=== PATIENT | female | born 1960 | race Hispanic/Latino ===

== ENCOUNTER 2018-05-06 11:08 | Emergency (ER) | payer BC, SELFPAY ==
[2018-05-06] MEDS ORDERED: LIDOCAINE 1% MPF 30 ML VIAL ONE (11:52)
--- NOTE | 2018-05-06 12:46 | ER ---
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 Jagged laceration, approx 5 cm, noted to chin with small amount of controlled bleeding. Care prior to arrival: None. Mechanism of Injury: Fall from standing position. Trauma event details: Injury occurred in the [facility], Injury occurred: at home. Injury occurred: May 06, 2018 Injury occurred at: 10:30. 11:17 Acuity: CHELLE 4 aj 11:17 Method Of Arrival: Ambulatory aj 11:30 Transition of care: patient was not received from another setting of care. Onset of tw2 symptoms was May 06, 2018. Risk Assessment: Do you want to hurt yourself or someone else? Patient reports no desire to harm self or others. Initial Sepsis Screen: Does the patient meet any 2 criteria? No. Patient's initial sepsis screen is negative. Does the patient have a suspected source of infection? No. Patient's initial sepsis screen is negative. Trauma Activation: Not Applicable Physician: ED Physician; Name: ; Notified At: ; Arrived At: Physician: General Surgeon; Name: ; Notified At: ; Arrived At: Physician: Radiology; Name: ; Notified At: ; Arrived At: Physician: Respiratory; Name: ; Notified At: ; Arrived At: Physician: Lab; Name: ; Notified At: ; Arrived At: Historical: - Allergies: 11:20 No Known Allergies; aj - Home Meds: 11:20 None [Active]; aj - PMHx: 11:20 None; aj - PSHx: 11:20 None; aj - Immunization history: Last tetanus immunization: unknown. - Social history:: Smoking status: Patient/guardian denies using tobacco. - Ebola Screening: : Patient negative for fever greater than or equal to 101.5 degrees Fahrenheit, and additional compatible Ebola Virus Disease symptoms Patient denies exposure to infectious person Patient denies travel to an Ebola-affected area in the 21 days before illness onset No symptoms or risks identified at this time. Screenin:29 Abuse screen: Denies threats or abuse. Nutritional screening: No deficits noted. tw2 Tuberculosis screening: No symptoms or risk factors identified. Fall Risk None identified. Primary Survey: 11:17 Breathing/Chest: Respiratory pattern: regular, Respiratory effort: spontaneous, aj unlabored. Circulation: Skin color: pink, Skin temperature: warm, dry. Disability Alert. Assessment: 11:17 General: Appears in no apparent distress. comfortable, Behavior is calm, cooperative, aj appropriate for age. Pain: Complains of pain in chin and neck. Neuro: Level of Consciousness is awake, alert, obeys commands, Oriented to person, place, time, situation, Appropriate for age. Respiratory: Airway is patent Respiratory effort is even, unlabored, Respiratory pattern is regular, symmetrical. Derm: Skin is intact, is healthy with good turgor, Skin is pink, warm \T\ dry. normal, Skin temperature is warm. Injury Description: Laceration sustained to chin is clean, jagged, 2.6 to 7.5 cm long. 12:20 Reassessment: Patient appears in no apparent distress at this time. Derik at bedside iw suturing ptGregor slot technician to assist. Vital Signs: 11:17 BP 147 / 97; Pulse 73; Resp 20; Temp 98.3; Pulse Ox 96% on R/A; Weight 61.23 kg; Height aj 5 ft. 7 in. (170.18 cm); 11:17 Body Mass Index 21.14 (61.23 kg, 170.18 cm) aj Jeison Coma Score: 11:17 Eye Response: spontaneous(4). Verbal Response: oriented(5). Motor Response: obeys aj commands(6). Total: 15. Trauma Score (Adult): 11:17 Eye Response: spontaneous(1); Verbal Response: oriented(1); Motor Response: obeys aj commands(2); Systolic BP: > 89 mm Hg(4); Respiratory Rate: 10 to 29 per min(4); [place] Score: 15; Trauma Score: 12 ED Course: 11:10 Patient arrived in ED. mr 11:18 Triage completed. aj 11:20 Arm band placed on left wrist. Patient placed in an exam room. aj 11:28 [facility] jr8 11:28 Howard Abebe MD is Attending Physician. jr8 11:29 Divine Calhoun RN is Primary Nurse. tw2 11:29 Bed in low position. Call light in reach. Adult w/ patient. Pulse ox on. NIBP on. tw2 11:30 Patient maintains SpO2 saturation greater than 95% on room air. tw2 11:30 Thermoregulation: warm blanket given to patient. tw2 12:38 Primary Nurse role handed off by Divine Calhoun RN iw 12:38 Ronna Crawford, RN is Primary Nurse. iw 12:50 Assist provider with laceration repair on chin using sutures. Set up tray. Performed by tw2 Derik ZHANG Patient tolerated well. 13:15 Patient did not have IV access during this emergency room visit. 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 Exp: iw 01/08/2020. Lot #: [id number]. } Route: IM; Site: right deltoid; Intake: 11:30 PO: 0ml; Total: 0ml. tw2 Outcome: 12:46 Discharge ordered by . jr8 13:15 Patient left the ED. iw 13:15 Discharged to home ambulatory, with family. tw2 13:15 Condition: stable 13:15 Discharge instructions given to patient, family, Instructed on discharge instructions, follow up and referral plans. wound care, Demonstrated understanding of instructions, follow-up care, wound care. Signatures: Ashly Ndiaye RN RN aj Rivera, Mary mr Ronna Crawford RN RN iw Roszak, Josh, PA PA jr Divine Calhoun RN RN tw2 Corrections: (The following items were deleted from the chart) 14:22 13:15 No provider procedures requiring assistance completed. tw2 tw2
--- NOTE | 2018-05-06 12:46 | EDPHYS ---
Physician Documentation [facility] Name: Salma Kumar Age: 58 yrs Sex: Female : 1960 Arrival Date: 05/06/2018 Time: 11:10 Bed 12 Private MD: ED Physician Howard Abebe HPI: 05/06 14:15 This 58 yrs old Female presents to ER via Ambulatory with complaints of Fall jr8 Injury, Laceration To Chin. 14:15 Details of fall: The patient fell from an upright position, while standing. Onset: The jr8 symptoms/episode began/occurred acutely, today. Associated injuries: The patient sustained face. Severity of symptoms: At their worst the symptoms were moderate, in the emergency department the symptoms are unchanged. The patient has not experienced similar symptoms in the past. The patient has not recently seen a physician. Patient stated that she was exercising and tripped landing on her chin. Denies LOC. No headache or neck pain. Laceration noted to chin . Historical: - Allergies: 11:20 No Known Allergies; aj - Home Meds: 11:20 None [Active]; aj - PMHx: 11:20 None; aj - PSHx: 11:20 None; aj - Immunization history: Last tetanus immunization: unknown. - Social history:: Smoking status: Patient/guardian denies using tobacco. - Ebola Screening: : Patient negative for fever greater than or equal to 101.5 degrees Fahrenheit, and additional compatible Ebola Virus Disease symptoms Patient denies exposure to infectious person Patient denies travel to an Ebola-affected area in the 21 days before illness onset No symptoms or risks identified at this time. ROS: 14:15 Eyes: Negative for injury, pain, redness, and discharge, Neck: Negative for injury, jr8 pain, and swelling, Cardiovascular: Negative for chest pain, palpitations, and edema, Respiratory: Negative for shortness of breath, cough, wheezing, and pleuritic chest pain, Abdomen/GI: Negative for abdominal pain, nausea, vomiting, diarrhea, and constipation, Back: Negative for injury and pain, MS/Extremity: Negative for injury and deformity, Neuro: Negative for headache, weakness, numbness, tingling, and seizure. 14:15 ENT: Positive for dental pain, laceration to lower mucosal/inner lip. 14:15 Skin: Positive for laceration(s), of the chin. Exam: 14:15 Eyes: Pupils equal round and reactive to light, extra-ocular motions intact. Lids and jr8 lashes normal. Conjunctiva and sclera are non-icteric and not injected. Cornea within normal limits. Periorbital areas with no swelling, redness, or edema. Neck: Trachea midline, no thyromegaly or masses palpated, and no cervical lymphadenopathy. Supple, full range of motion without nuchal rigidity, or vertebral point tenderness. No Meningismus. Cardiovascular: Regular rate and rhythm with a normal S1 and S2. No gallops, murmurs, or rubs. Normal PMI, no JVD. No pulse deficits. Respiratory: Lungs have equal breath sounds bilaterally, clear to auscultation and percussion. No rales, rhonchi or wheezes noted. No increased work of breathing, no retractions or nasal flaring. Abdomen/GI: Soft, non-tender, with normal bowel sounds. No distension or tympany. No guarding or rebound. No evidence of tenderness throughout. Back: No spinal tenderness. No costovertebral tenderness. Full range of motion. Skin: Warm, dry with normal turgor. Normal color with no rashes, no lesions, and no evidence of cellulitis. MS/ Extremity: Pulses equal, no cyanosis. Neurovascular intact. Full, normal range of motion. Neuro: Awake and alert, GCS 15, oriented to person, place, time, and situation. Cranial nerves II-XII grossly intact. Motor strength 5/5 in all extremities. Sensory grossly intact. Cerebellar exam normal. Normal gait. 14:15 Head/face: Noted is a laceration(s), that is deep, that is jagged, 3 cm(s), of the chin. 14:15 ENT: Exam is negative for injury of acute deformity, earache, ear discharge, TM abnormalities, epistaxis, nasal discharge, sinus tenderness, pharyngitis, exudate, Mouth: Oral mucosa: pink and intact, moist, Gums: pink, Tongue: is moist, laceration to inner lower lip with avulsion from gum line . Vital Signs: 11:17 BP 147 / 97; Pulse 73; Resp 20; Temp 98.3; Pulse Ox 96% on R/A; Weight 61.23 kg; Height aj 5 ft. 7 in. (170.18 cm); 11:17 Body Mass Index 21.14 (61.23 kg, 170.18 cm) aj Jeison Coma Score: 11:17 Eye Response: spontaneous(4). Verbal Response: oriented(5). Motor Response: obeys aj commands(6). Total: 15. Trauma Score (Adult): 11:17 Eye Response: spontaneous(1); Verbal Response: oriented(1); Motor Response: obeys aj commands(2); Systolic BP: > 89 mm Hg(4); Respiratory Rate: 10 to 29 per min(4); [place] Score: 15; Trauma Score: 12 Laceration: 12:41 Wound Repair of 3cm ( 1.2in ) subcutaneous laceration to chin. Irregularly shaped.. jr8 Minimal bleeding noted.. Distal neuro/vascular/tendon intact. Anesthesia: Local anesthetic administered with 3 mls of 1% lidocaine. Wound prep: Extensive cleansing with hibiclenz, Wound irrigation with saline, Wound explored extensively. Subcutaneous tissue closed with 4 5-0 chromic using interrupted sutures and sterile technique. Skin closed with 7 5-0 Prolene using interrupted sutures and sterile technique. Patient tolerated well. 12:41 Wound Repair of 3cm ( 1.2in ) mucosal laceration to lower mental region on gum line. jr8 Irregularly shaped.. Minimal bleeding noted.. Distal neuro/vascular/tendon intact. Anesthesia: Local anesthetic administered with 4 mls of 1% lidocaine. Wound prep: Wound irrigation with saline, Wound explored extensively, Copious irrigation. Mucosal layer closed with 3 5-0 chromic using interrupted sutures and sterile technique. Mucosal surface closed with 3 5-0 chromic using interrupted sutures and sterile technique. Patient tolerated well. MDM: 11:28 Patient medically screened. jr8 12:41 Data reviewed: vital signs, nurses notes, and as a result, I will discharge patient. jr8 Data interpreted: Pulse oximetry: on room air is 96 %. Interpretation: normal. Counseling: I had a detailed discussion with the patient and/or guardian regarding: the historical points, exam findings, and any diagnostic results supporting the discharge/admit diagnosis, the need for outpatient follow up, a family practitioner, to return to the emergency department if symptoms worsen or persist or if there are any questions or concerns that arise at home. 12:41 Response to treatment: the patient's symptoms have markedly improved after treatment. 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 Exp: iw 01/08/2020. Lot #: [id number]. } Route: IM; Site: right deltoid; Disposition: 18:52 Co-signature as Attending Physician, Howard Abebe MD I agree with the assessment and kdr plan of care. Disposition: 05/06/18 12:46 Discharged to Home. Impression: Laceration of lip and oral cavity without foreign body, Laceration of face without foreign body. - Condition is Stable. - Discharge Instructions: Mouth Laceration, Facial Laceration. - Medication Reconciliation Form, Thank You Letter, Antibiotic Education, Prescription Opioid Use form. - Follow up: Private Physician; When: 5 - 6 days; Reason: Wound Recheck, Recheck today's complaints, Continuance of care, Staple/Suture removal, Re-evaluation by your physician. - Problem is new. - Symptoms have improved. - Notes: written prescription for Peridex Soft foods for next few days Signatures: Ashly Ndiaye, RN Howard Nelson MD MD kdr Ronna Crawford RN RN iw Derik Lowe PA PA jr8 Divine Calhoun RN RN tw2 Corrections: (The following items were deleted from the chart) 13:15 12:46 05/06/2018 12:46 Discharged to Home. Impression: Laceration of lip and oral iw cavity without foreign body; Laceration of face without foreign body. Condition is Stable. Forms are Medication Reconciliation Form, Thank You Letter, Antibiotic Education, Prescription Opioid Use. Follow up: Private Physician; When: 5 - 6 days; Reason: Wound Recheck, Recheck today's complaints, Continuance of care, Staple/Suture removal, Re-evaluation by your physician. Problem is new. Symptoms have improved. jr8
[2018-05-06] MEDS ORDERED: TETANUS & DIPHTHERIA TOX,ADULT 0.5 ML VIAL ONE (13:10)
== END 2018-05-06 13:15 | disposition home or self-care (01) ==
LOC: ER 11:08
PROC: 0JQ10ZZ Repair Face Subcutaneous Tissue and Fascia, Open Approach (ICD-10-PCS; principal; 2018-05-06)
DX: S01.81XA Laceration without foreign body of other part of head, initial encounter (principal); S01.512A Laceration without foreign body of oral cavity, initial encounter; W01.198A Fall on same level from slipping, tripping and stumbling with subsequent striking against other object, initial encounter; Y93.89 Activity, other specified; Y92.9 Unspecified place or not applicable; Z23 Encounter for immunization
CPT/HCPCS: 90714; 99284

== ENCOUNTER 2022-02-09 15:32 | Emergency (ER) | payer BC ==
--- OUTSIDE RECORDS SUMMARY | 2022-02-09 15:37 | XMS REPORT | Continuity of Care Document ---
:1960 Author Organization [facility] t Address [address] [place] [address] [address] [place] [address] Care Team Providers Name Role Phone Hugh Cristian Albarado Attending Clinician Unavailable Problems This patient has no known problems. Allergies, Adverse Reactions, Alerts This patient has no known allergies or adverse reactions. Medications Ordered Filled Start Stop Current Ordering Indication Dosage Frequency Signature Comments Components Source Medication Medication Date Date Medication? Clinician (SIG) Name Name Eszopiclone Eszopiclone Yes Cristian 1 tablet Common Reese immediatel [facility] y before - [facility] bedtime [facility] Hydroxychlo Hydroxychlo Yes Cristian TK 2 Common roquine roquine Reese TABLETS PO Sp briseyda Sulfate Sulfate QD - [facility] Trazodone Trazodone Yes Cristian 1 tablet Common HCl HCl Reese at bedtime [facility] Trazodone Trazodone Yes Cristian TAKE 1 C ommon HCl HCl Reese TABLET BY Spirit MOUTH - [facility] EVERY DAY [facility] AT BEDTIME [facility] Procedures This patient has no known procedures. Encounters Start End Encounter Admission Attending Care Care Encounter Source Date/Time Date/Time Type Type Clinicians Facility Department ID 2021-07-[address] [facility] [id number] Common 12:56:24 Cristian [id number] [facility] 2021-07-03 Outpatient [facility] [id number] Common 12:49:08 Cristian [id number] [facility] 2021-07-03 Outpatient [facility] [id number] Common 12:27:54 Cristian 01509 [facility] 2021-07-03 Outpatient Reese, STLMLC STLMLC [id number] Common 12:26:13 Cristian 54066 [facility] 2021-07-03 Outpatient Reese, STLMLC STLMLC [id number] Common 12:25:48 Cristian 73658 [facility] 2021-07-03 Outpatient Reese, STLMLC STLMLC [id number] Common 12:01:36 Cristian 42155 [facility] 2021-07-03 Outpatient Reese, STLMLC STLMLC [id number] Common 11:23:05 Cristian [id number] [facility] 2021-07-03 Outpatient Reese, STLMLC STLMLC [id number] Common 11:16:49 Cristian [id number] [facility] 2021-07-03 Outpatient Reese, STLMLC STLMLC [id number] Common 11:12:15 Cristian [id number] [facility] 2021-07-03 Outpatient Reese, STLMLC STLMLC Common 11:06:11 Cristian [id number] [facility] 2021-07-03 Outpatient Reese, STLMLC STLMLC [id number] Common 10:58:21 Cristian [id number] [facility] 2020-09-12 2020-09-12 Outpatient STLMLC STL[facility] [id number] Common 00:00:00 00:00:00 [facility] 2020-07-12 2020-07-12 Outpatient STLMLC STL[facility]C [id number] Common 00:00:00 00:00:00 [facility] 2020-04-11 2020-04-11 Outpatient STLMLC STLMLC [id number] Common 00:00:00 00:00:00 [facility] 2020-03-16 2020-03-16 Outpatient STLMLC STLMLC [id number] Common 00:00:00 00:00:00 [facility] 2020-01-10 2020-01-10 [id number] Common 14:00:00 14:00:[address] [facility] 2019-12-23 2019-12-23 [id number] Common 15:24:00 15:24:[address] [facility] 2019-12-12 2019-12-12 [facility] [id number] Common 15:19:00 15:19:[address] [facility] 2019-11-17 2019-11-17 [facility] [id number] Common 17:25:00 17:25:[address] [facility] 2019-11-16 2019-11-16 [facility] [id number] Common 10:15:00 10:15:[address] [facility] 2019-11-10 2019-11-10 [facility] [id number] Common 08:11:00 08:11:[address] [facility] 2019-11-03 2019-11-03 [facility] [id number] Common 13:32:00 13:32:[address] [facility] 2019-10-28 2019-10-28 [facility] [id number] Common 15:18:00 15:18:[address] [facility] 2019-10-27 2019-10-27 [facility] [id number] Common 16:52:00 16:52:[address] [facility] 2019-10-26 2019-10-26 [facility] [id number] Common 09:45:00 09:45:[address] [facility] 2019-09-13 2019-09-13 [id number] Common 14:30:00 14:30:[address] [facility] 2019-08-11 2019-08-11 [facility] [id number] Common 15:15:00 15:15:[address] [facility] 2019-07-28 2019-07-28 [facility] [id number] Common 08:19:00 08:19:[address] [facility] 2019-07-14 2019-07-14 [facility] [id number] Common 15:23:00 15:23:[address] [facility] 2019-06-14 2019-06-14 [facility] [id number] Common 14:45:00 14:45:[address] [facility] 2019-05-19 2019-05-19 [facility] [id number] Common 13:15:00 13:15:[address] [facility] 2019-05-12 2019-05-12 [facility] [id number] Common 15:30:00 15:30:[address] [facility] Results This patient has no known results.
[2022-02-09 15:47] LABS: Urine Blood Trace-intact (Negative); Urine Glucose Negative (Negative); Urine Protein Negative (Negative)
[2022-02-09] MEDS ORDERED: GABAPENTIN 300 MG CAP ONE (16:38)
[2022-02-09 16:47] LABS: Absolute Lymphocytes (CBC) 1.8 K/uL (0.7-4.9); Hematocrit 38.6 % (36.0-45.0); Lymphocytes % 31.6 % (15.3-44.8); MCV 93.6 fL (80-100); MPV 10.9 fL (7.6-11.3); RBC Red Blood Cell Count 4.13 M/uL (3.86-4.86)
[2022-02-09 16:57] LABS: Potassium 3.7 mmol/L (3.5-5.1); Troponin High Sensitivity 3.4 pg/mL (<58.9)
--- NOTE | 2022-02-09 17:06 | RAD REPORT ---
EXAM DESCRIPTION: Claudia Single View02/09/2022 4:57 pm CLINICAL HISTORY: Chest pain COMPARISON: 2019 FINDINGS: The lungs appear clear of acute infiltrate. The heart is normal size IMPRESSION: No acute abnormalities displayed
--- NOTE | 2022-02-09 17:57 | ER ---
Nurse's Notes [facility] Name: Salma Kumar Age: 61 yrs Sex: Female : 1960 Arrival Date: 02/09/2022 Time: 15:35 Bed 14 Private MD: Diagnosis: Palpitations;Bradycardia, unspecified;Cervical neck pain Presentation: 02/09 15:50 Chief complaint: Patient states: PALPITATIONS AND FATIGUE x1 MONTH. Coronavirus screen: bp At this time, the client does not indicate any symptoms associated with coronavirus-19. Ebola Screen: No symptoms or risks identified at this time. Initial Sepsis Screen: Does the patient meet any 2 criteria? No. Patient's initial sepsis screen is negative. Does the patient have a suspected source of infection? No. Patient's initial sepsis screen is negative. Risk Assessment: Do you want to hurt yourself or someone else? Patient reports no desire to harm self or others. Onset of symptoms is unknown. 15:50 Method Of Arrival: Ambulatory bp 15:50 Acuity: CHELLE 3 bp Triage Assessment: 15:51 General: Appears in no apparent distress. comfortable, Behavior is calm, cooperative, bp appropriate for age. Pain: Denies pain. EENT: No deficits noted. Neuro: No deficits noted. Cardiovascular: Rhythm is sinus bradycardia. Respiratory: No deficits noted. GI: No signs and/or symptoms were reported involving the gastrointestinal system. : No signs and/or symptoms were reported regarding the genitourinary system. Derm: No deficits noted. Musculoskeletal: No deficits noted. Historical: - Allergies: 15:51 No Known Allergies; bp - Home Meds: 15:51 None [Active]; bp - PMHx: 15:51 None; bp - Immunization history:: Adult Immunizations up to date. - Social history:: Smoking status: unknown. Screenin:52 Abuse screen: Denies threats or abuse. Denies injuries from another. Nutritional bp screening: No deficits noted. Tuberculosis screening: No symptoms or risk factors identified. Fall Risk None identified. Assessment: 15:52 General: SEE TRIAGE NOTE. bp 17:13 Reassessment: No changes from previously documented assessment. Patient and/or family bp updated on plan of care and expected duration. Pain level reassessed. 18:18 Reassessment: Patient states symptoms have improved. bp Vital Signs: 15:50 Pulse 55; Resp 16; Temp 98; Pulse Ox 96% ; bp 17:13 BP 109 / 80; Pulse 52; Resp 17; Pulse Ox 95% ; bp 18:18 BP 131 / 86; Pulse 50; Resp 21; Pulse Ox 100% ; bp ED Course: 15:35 Patient arrived in ED. am2 15:36 Wilman Haskins, RN is Primary Nurse. bp 15:51 Triage completed. bp 15:52 Arm band placed on. bp 15:52 Patient has correct armband on for positive identification. Bed in low position. Call bp light in reach. Side rails up X2. Client placed on continuous cardiac and pulse oximetry monitoring. NIBP monitoring applied. 15:53 Howard Abebe MD is Attending Physician. kdr 16:10 Inserted saline lock: 20 gauge in right antecubital area, using aseptic technique. bp Blood collected. 16:59 XRAY Chest (1 view) In Process Unspecified. EDMS 18:18 No provider procedures requiring assistance completed. IV discontinued, intact, bp bleeding controlled, No redness/swelling at site. Pressure dressing applied. Patient maintains SpO2 saturation greater than 95% on room air. Administered Medications: 16:30 Drug: Neurontin (gabapentin) 300 mg Route: PO; bp Medication: 15:52 VIS not applicable for this client. bp Outcome: 17:57 Discharge ordered by . kdr 18:18 Discharged to home ambulatory, with family. bp 18:18 Condition: stable 18:18 Discharge instructions given to patient, Instructed on discharge instructions, follow up and referral plans. medication usage, Demonstrated understanding of instructions, follow-up care, medications, Prescriptions given X 1. 18:20 Patient left the ED. bp Signatures: Dispatcher [employer]W[facility] Howard Abebe MD MD kdr Ashly Hunt am2 Wilman Haskins, RN RN bp
--- NOTE | 2022-02-09 17:58 | EDPHYS ---
Physician Documentation [facility] Name: Salma Kumar Age: 61 yrs Sex: Female : 1960 Arrival Date: 02/09/2022 Time: 15:35 Bed 14 Private MD: ED Physician Howard Abebe HPI: 02/09 16:10 This 61 yrs old Female presents to ER via Ambulatory with complaints of kdr Palpitations, Irregular Pulse, General Weakness, Near Syncope. 16:10 For approximately the past month and a half, the patient has noted that her heart rate kdr decreases perhaps as low as in the 20s from time to time. This may last a minute or 2. Patient becomes dizzy when this happens. Coincidentally, this seems to be in part or at times related to interaction with her father. Apparently the 2 of them have a fair amount of stress between them. In any case she does have some episodes outside of her interactions with her father but those do seem to be contributing factor or least the symptoms occur when she is having some conflicting interaction with her father. She states that at times her heart rate will go down into the 20s and 30s.. Onset: The symptoms/episode began/occurred gradually, 1.5 month(s) ago. Severity of symptoms: At their worst the symptoms were moderate severe in the emergency department the symptoms have improved markedly. The patient has not experienced similar symptoms in the past. The patient has not recently seen a physician. Historical: - Allergies: 15:51 No Known Allergies; bp - Home Meds: 15:51 None [Active]; bp - PMHx: 15:51 None; bp - Immunization history:: Adult Immunizations up to date. - Social history:: Smoking status: unknown. ROS: 16:10 Constitutional: Negative for fever, chills, and weight loss, Eyes: Negative for injury, kdr pain, redness, and discharge, ENT: Negative for injury, pain, and discharge, Respiratory: Negative for shortness of breath, cough, wheezing, and pleuritic chest pain, Abdomen/GI: Negative for abdominal pain, nausea, vomiting, diarrhea, and constipation, Back: Negative for injury and pain, : Negative for injury, bleeding, discharge, and swelling, MS/Extremity: Negative for injury and deformity, Skin: Negative for injury, rash, and discoloration, Neuro: Negative for headache, weakness, numbness, tingling, and seizure activity. Psych: Negative for depression, anxiety, suicide ideation, homicidal ideation, and hallucinations, Allergy/Immunology: Negative for hives, rash, and allergies, Endocrine: Negative for neck swelling, polydipsia, polyuria, polyphagia, and marked weight changes, Hematologic/Lymphatic: Negative for swollen nodes, abnormal bleeding, and unusual bruising. 16:10 Cardiovascular: Positive for chest pain, palpitations, Negative for edema, orthopnea. Exam: 16:10 Constitutional: This is a well developed, well nourished patient who is awake, alert, kdr and in no acute distress. Head/Face: Normocephalic, atraumatic. Eyes: Pupils equal round and reactive to light, extra-ocular motions intact. Lids and lashes normal. Conjunctiva and sclera are non-icteric and not injected. Cornea within normal limits. Periorbital areas with no swelling, redness, or edema. Neck: Trachea midline, no thyromegaly or masses palpated, and no cervical lymphadenopathy. Supple, full range of motion without nuchal rigidity, or vertebral point tenderness. No Meningismus. Chest/axilla: Normal chest wall appearance and motion. Nontender with no deformity. No lesions are appreciated. Cardiovascular: Regular rate and rhythm with a normal S1 and S2. No gallops, murmurs, or rubs. Normal PMI, no JVD. No pulse deficits. Respiratory: Lungs have equal breath sounds bilaterally, clear to auscultation and percussion. No rales, rhonchi or wheezes noted. No increased work of breathing, no retractions or nasal flaring. Abdomen/GI: Soft, non-tender, with normal bowel sounds. No distension or tympany. No guarding or rebound. No evidence of tenderness throughout. Back: No spinal tenderness. No costovertebral tenderness. Full range of motion. Skin: Warm, dry with normal turgor. Normal color with no rashes, no lesions, and no evidence of cellulitis. MS/ Extremity: Pulses equal, no cyanosis. Neurovascular intact. Full, normal range of motion. Neuro: Awake and alert, GCS 15, oriented to person, place, time, and situation. Cranial nerves II-XII grossly intact. Motor strength 5/5 in all extremities. Sensory grossly intact. Cerebellar exam normal. Normal gait. Psych: Awake, alert, with orientation to person, place and time. Behavior, mood, and affect are within normal limits. 18:02 ECG was reviewed by the Attending Physician. kdr Vital Signs: 15:50 Pulse 55; Resp 16; Temp 98; Pulse Ox 96% ; bp 17:13 BP 109 / 80; Pulse 52; Resp 17; Pulse Ox 95% ; bp 18:18 BP 131 / 86; Pulse 50; Resp 21; Pulse Ox 100% ; bp MDM: 17:57 Patient medically screened. kdr 18:03 Data reviewed: vital signs, nurses notes, lab test result(s), radiologic studies. kdr Counseling: I had a detailed discussion with the patient and/or guardian regarding: the historical points, exam findings, and any diagnostic results supporting the discharge/admit diagnosis, lab results, radiology results, the need for outpatient follow up. 02/09 15:47 Order name: Urine Dipstick-Ancillary; Complete Time: 17:31 EDMD 02/09 15:53 Order name: Basic Metabolic Panel; Complete Time: 17:31 [facility] 02/09 15:53 Order name: CBC with Diff [facility] 02/09 15:53 Order name: Troponin HS; Complete Time: 17:31 [facility] 02/09 15:53 Order name: XRAY Chest (1 view); Complete Time: 17:31 [facility] 02/09 15:53 Order name: EKG; Complete Time: 15:54 [facility] 02/09 15:53 Order name: Cardiac monitoring; Complete Time: 15:58 [facility] 02/09 15:53 Order name: EKG - Nurse/Tech; Complete Time: 15:58 [facility] 02/09 15:53 Order name: IV Saline Lock; Complete Time: 16:23 [facility] 02/09 15:53 Order name: Labs collected and sent; Complete Time: 16:23 [facility] 02/09 15:53 Order name: O2 Per Protocol; Complete Time: 15:58 [facility] 02/09 15:53 Order name: O2 Sat Monitoring; Complete Time: 15:58 kdr EC:02 Rate is 53 beats/min. Rhythm is regular, Sinus bradycardia with No ectopy. QRS [place] is kdr Normal. [place] interval is normal. QRS interval is normal. QT interval is normal. Clinical impression: NSR w/ Non-specific ST/T Changes and Sinus bradycardia. Administered Medications: 16:30 Drug: Neurontin (gabapentin) 300 mg Route: PO; bp Disposition Summary: 02/09/22 17:57 Discharge Ordered Location: Home kdr Problem: new kdr Symptoms: have improved kdr Condition: Stable kdr Diagnosis - Palpitations kdr - Bradycardia, unspecified kdr - Cervical neck pain kdr Followup: kdr - With: Private Physician - When: 2 - 3 days - Reason: If symptoms return, Further diagnostic work-up, Recheck today's complaints, Continuance of care, Re-evaluation by your physician Discharge Instructions: - Discharge Summary Sheet kdr - Bradycardia, Adult kdr - Palpitations, [id number] kdr - Cervical Sprain, [id number] kdr Forms: - Thank You Letter kdr - Medication Reconciliation Form kdr - Antibiotic Education kdr - Prescription Opioid Use kdr Prescriptions: - Neurontin 300 mg Oral Capsule - take 1 capsule by ORAL route every 8 hours; 30 capsule; Refills: 0, Product kdr Selection Permitted Signatures: Dispatcher [employer] Howard Bacon MD MD kdr Wilman Haskins, RN RN bp
[2022-02-09 18:48] VITALS: TEMP 98
[2022-02-09 19:08] VITALS: BP 131/86; O2SAT 100
[2022-02-09 21:16] LABS: Blood Morphology Comment NOT SEEN (NOT SEEN); Platelet Estimate DECR
[2022-02-09 21:17] LABS: White Blood Cell Scan OK (OK)
--- NOTE | 2022-02-10 11:31 | EKG ---
Test Date: 2022-02-09 Test Time: 15:54:46 [employer]ing Specialist: FROILAN MEASUREMENT RESULTS: Intervals: Rate: 53 LA: 136 QRSD: 90 QT: 440 QTc: 412 [place]: P: 49 LA: 136 QRS: 81 T: 57 INTERPRETIVE STATEMENTS: Sinus bradycardia Otherwise normal ECG No previous ECG available for comparison Electronically Signed On 02-10-22 11:30:47 CDT by Daniel Freeman
== END 2022-02-09 18:20 | disposition home or self-care (01) ==
LOC: ER 15:32
DX: R00.2 Palpitations (principal); R00.1 Bradycardia, unspecified; M54.2 Cervicalgia; R07.9 Chest pain, unspecified
CPT/HCPCS: 36415; 71045; 80048; 81003; 84484; 85025; 93005; 99285

== ENCOUNTER 2024-08-24 11:54 | Emergency (ER) | payer OTHER ==
--- OUTSIDE RECORDS SUMMARY | 2024-08-24 11:58 | XMS REPORT | Continuity of Care Document ---
Author Name Unknown Address [address] [address] [place] [address] [facility] Address 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 Role Phone Meño Tanner Attending Clinician Unavailable Cristian Reese Attending Clinician Unavailable Payers Payer Name Policy Type Policy Number Effective Date Expirati on Date Source [facility]ign[employer] Preferred [facility] [id number] 2024 00:00:00 [facility] Blue Cross and Blue Shield C1 [id number] 2019 00:00:00 [facility] Problems Condition Name Condition Details Condition Category Status Onset Date Resolution Date Last Treatment Date Treating Clinician Comments Source [id number] Memory changes Problem [facility] [id number] Severe episode of recurrent major depressive disorder, without psychotic features Problem [facility] [id number] Repetitive intrusions of sleep Problem Active [facility] [id number] Mixed hyperlipid emia Problem Active [facility] [id number] Thrombocyt openia Problem Active [facility] [id number] 00 Daytime somnolence Problem Active [facility] 841964026 Depression with anxiety Problem Active [facility] 26491887 Cerebral cyst Problem [facility] 82194088 Nonintract able headache, unspecifie d chronicity pattern, unspecifie d headache type Problem Active [facility] [id number] Dependence on other enabling machines and devices Problem Active [facility] 84952725 Multiple joint pain Problem Active [facility] 248861092 Rheumatoid arthritis of multiple sites with negative rheumatoid factor Problem Active [facility] [id number] Pre-diabet es Problem Active [facility] 21431563 Chronic sinusitis, unspecifie d location Problem Active [facility] 92737566 Fatigue, unspecifie d type Problem Active [facility] 47870687 Obstructiv e sleep apnea (adult) (pediatric ) Problem Active [facility] 018280261 Scl-70 antibody positive Problem Active [facility] 782479624 Subchondra l sclerosis Problem Active [facility] 757027706 Insomnia, unspecifie d type Problem Active [facility] Allergies, Adverse Reactions, Alerts Allergy Name Allergy Type Status Severity Reaction(s) Onset Date Inactive Date Treating Clinician Comments Source almond allergen ic extract almond allergen ic extract Active Unknown [facility] peanut allergen ic extract peanut allergen ic extract Active Unknown [facility] Social History Social Habit Start Date Stop Date Quantity Comments Source History of Tobacco Use [facility] Sex Assigned At [facility] Smoking Status Start Date Stop Date Source Never Smoker [facility] Medications Ordered Medication Name Filled Medication Name Start Date Stop Date Current Medication? Ordering Clinician Indication Dosage Frequency Signature (SIG) Comments Components Source hydrOXYzine HCl 10 MG hydrOXYzine HCl 10 MG 2023-06 2-19 00:00: 00 No 1{table t_as_ne eded} QD hydrOXYzin e HCl 10 MG Nitrofurant oin Monohyd Macro 100 MG Nitrofurant oin Monohyd Macro 100 MG 2023-06 0-28 00:00: 00 No 1{capsu le_with _food} BID Nitrofuran toin Monohyd Macro 100 MG DULoxetine HCl 30 MG DULoxetine HCl 30 MG 4-05 00:00: 00 No 1{capsu le} QD DULoxetine HCl 30 MG Hydroxychlo roquine Sulfate 200 MG Hydroxychlo roquine Sulfate 200 MG No 1{table t} BID Hydroxychl oroquine Sulfate 200 MG traZODone HCl 100 MG traZODone HCl 100 MG No traZODone HCl 100 MG Atorvastati n Calcium 20 MG Atorvastati n Calcium 20 MG No 1{table t} QD Atorvastat in Calcium 20 MG Escitalopra m Oxalate 20 MG Escitalopra m Oxalate 20 MG No Escitalopr am Oxalate 20 MG Donepezil HCl 5 MG Donepezil HCl 5 MG No 1{table t_at_be dtime} QD Donepezil HCl 5 MG Immunizations Ordered Immunization Name Filled Immunization Name Date Status Comments Source Afluria single dose Afluria single dose 10:10:00 Completed [facility] Afluria (IIV4) - 3 years and older - SDS - 0.5mL Afluria (IIV4) - 3 years and older - SDS - 0.5mL Unknown Completed [facility] Afluria (IIV4) - 3 years and older - SDS - 0.5mL Afluria (IIV4) - 3 years and older - SDS - 0.5mL Unknown Completed [facility] Afluria (IIV4) - 3 years and older - SDS - 0.5mL Afluria (IIV4) - 3 years and older - SDS - 0.5mL Unknown Completed [facility] Afluria (IIV4) - 3 years and older - SDS - 0.5mL Afluria (IIV4) - 3 years and older - SDS - 0.5mL Unknown Completed [facility] Afluria (IIV4) - 3 years and older - SDS - 0.5mL Afluria (IIV4) - 3 years and older - SDS - 0.5mL Unknown Completed [facility] Vital Signs Vital Name Observation Time Observation Value Comments S ource height 2024-08-09 08:15:00 67 [in_i] Commo n [facility] weight 2024-08-09 08:15:00 159.2 [lb_av] Co mmon [facility] temperature 2024-08-09 08:15:00 97.2 [degF] Com [facility] bmi 2024-08-09 08:15:00 24.93 kg/m2 Comm on [facility] oximetry 2024-08-09 08:15:00 96 % Commo n [facility] blood pressure systolic 2024-08-09 08:15:00 108 mm[Hg] [facility] diastolic 2024-08-09 08:15:00 67 mm[Hg] [facility] height 2024-07-05 08:30:00 67 [in_i] Commo n [facility] weight 2024-07-05 08:30:00 157.8 [lb_av] Co [facility] temperature 2024-07-05 08:30:00 97.2 [degF] Com [facility] bmi 2024-07-05 08:30:00 24.71 kg/m2 Comm on [facility] oximetry 2024-07-05 08:30:00 97 % Commo n [facility] respiratory rate 2024-07-05 08:30:00 16 /min [facility] blood pressure systolic 2024-07-05 08:30:00 101 mm[Hg] [facility] blood pressure diastolic 2024-07-05 08:30:00 74 mm[Hg] [facility] height 2024-07-05 08:30:00 67 [in_i] Commo n [facility] weight 2024-07-05 08:30:00 157.8 [lb_av] Co [facility] temperature 2024-07-05 08:30:00 97.2 [degF] Com [facility] bmi 2024-07-05 08:30:00 24.71 kg/m2 Comm on [facility] oximetry 2024-07-05 08:30:00 97 % Commo n [facility] respiratory rate 2024-07-05 08:30:00 16 /min [facility] blood pressure systolic 2024-07-05 08:30:00 101 mm[Hg] [facility] blood pressure diastolic 2024-07-05 08:30:00 74 mm[Hg] [facility] height 2024-05-26 09:40:00 67 [in_i] Commo n [facility] weight 2024-05-26 09:40:00 160.8 [lb_av] Co on [facility] temperature 2024-05-26 09:40:00 97.2 [degF] Com [facility] bmi 2024-05-26 09:40:00 25.18 kg/m2 Comm on [facility] oximetry 2024-05-26 09:40:00 94 % Commo n [facility] respiratory rate 2024-05-26 09:40:00 16 /min [facility] blood pressure systolic 2024-05-26 09:40:00 114 mm[Hg] [facility] blood pressure diastolic 2024-05-26 09:40:00 76 mm[Hg] [facility] height 2024-04-04 08:40:00 67 [in_i] Commo n [facility] weight 2024-04-04 08:40:00 158.4 [lb_av] Co mmon [facility] temperature 2024-04-04 08:40:00 97.2 [degF] Com mon [facility] bmi 2024-04-04 08:40:00 24.81 kg/m2 Comm on [facility] oximetry 2024-04-04 08:40:00 96 % Commo n [facility] respiratory rate 2024-04-04 08:40:00 16 /min [facility] blood pressure systolic 2024-04-04 08:40:00 94 mm[Hg] [facility] blood pressure diastolic 2024-04-04 08:40:00 65 mm[Hg] [facility] height 2024-04-04 08:40:00 67 [in_i] Commo n [facility] weight 2024-04-04 08:40:00 158.4 [lb_av] Co mmon [facility] temperature 2024-04-04 08:40:00 97.2 [degF] Com mon [facility] bmi 2024-04-04 08:40:00 24.81 kg/m2 Comm on [facility] oximetry 2024-04-04 08:40:00 96 % Commo n [facility] respiratory rate 2024-04-04 08:40:00 16 /min [facility] blood pressure systolic 2024-04-04 08:40:00 94 mm[Hg] [facility] blood pressure diastolic 2024-04-04 08:40:00 65 mm[Hg] [facility] height 2024-01-18 08:00:00 67 [in_i] Commo n [facility] weight 2024-01-18 08:00:00 155.4 [lb_av] Co mmon [facility] temperature 2024-01-18 08:00:00 97.2 [degF] Com mon [facility] bmi 2024-01-18 08:00:00 24.34 kg/m2 Comm on [facility] oximetry 2024-01-18 08:00:00 95 % Commo n [facility] respiratory rate 2024-01-18 08:00:00 16 /min [facility] blood pressure systolic 2024-01-18 08:00:00 110 mm[Hg] [facility] blood pressure diastolic 2024-01-18 08:00:00 74 mm[Hg] Common [facility] height 2023-10-12 08:00:00 67 [in_i] Commo n [facility] weight 2023-10-12 08:00:00 152.4 [lb_av] Co [facility] temperature 2023-10-12 08:00:00 97.0 [degF] Com [facility] bmi 2023-10-12 08:00:00 23.87 kg/m2 Comm on [facility] oximetry 2023-10-12 08:00:00 94 % Commo n [facility] respiratory rate 2023-10-12 08:00:00 16 /min [facility] blood pressure systolic 2023-10-12 08:00:00 138 mm[Hg] [facility] blood pressure diastolic 2023-10-12 08:00:00 75 mm[Hg] [facility] height 2023-09-11 16:20:00 67 [in_i] Commo n [facility] weight 2023-09-11 16:20:00 153.0 [lb_av] Co [facility] temperature 2023-09-11 16:20:00 97.3 [degF] Com [facility] bmi 2023-09-11 16:20:00 23.96 kg/m2 Comm on [facility] oximetry 2023-09-11 16:20:00 95 % Commo n [facility] respiratory rate 2023-09-11 16:20:00 16 /min [facility] blood pressure systolic 2023-09-11 16:20:00 114 mm[Hg] [facility] blood pressure diastolic 2023-09-11 16:20:00 79 mm[Hg] [facility] height 2023-03-19 14:00:00 67 [in_i] Commo n [facility] weight 2023-03-19 14:00:00 156.4 [facility]lb_av[facility] 20[facility]-19 14:00:00 97.2 [degF] Com [facility] bmi 2023-03-19 14:00:00 24.49 kg/m2 Comm on [facility] oximetry 2023-03-19 14:00:00 96 % Commo n [facility] respiratory rate 2023-03-19 14:00:00 15 /min [facility] blood pressure systolic 2023-03-19 14:00:00 111 mm[Hg] [facility] blood pressure diastolic 2023-03-19 14:00:00 71 mm[Hg] [facility] height 2020-09-12 15:20:00 67 [in_i] Commo n [facility] weight 2020-09-12 15:20:00 172.4 [lb_av] Co [facility] temperature 2020-09-12 15:20:00 96.6 [degF] Com [facility] bmi 2020-09-12 15:20:00 27 kg/m2 Commo n [facility] oximetry 2020-09-12 15:20:00 96 % Commo n [facility] respiratory rate 2020-09-12 15:20:00 16 /min [facility] blood pressure systolic 2020-09-12 15:20:00 118 mm[Hg] [facility] blood pressure diastolic 2020-09-12 15:20:00 74 mm[Hg] [facility] height 2020-07-12 10:00:00 67 [in_i] Commo n [facility] weight 2020-07-12 10:00:00 165.7 [lb_av] Co [facility] temperature 2020-07-12 10:00:00 97.2 [degF] Com mon [facility] bmi 2020-07-12 10:00:00 25.95 kg/m2 Comm on [facility] oximetry 2020-07-12 10:00:00 96 % Commo n [facility] respiratory rate 2020-07-12 10:00:00 17 /min [facility] blood pressure systolic 2020-07-12 10:00:00 126 mm[Hg] [facility] blood pressure diastolic 2020-07-12 10:00:00 78 mm[Hg] [facility] height 2020-04-11 10:10:00 67 [in_i] Commo n [facility] weight 2020-04-11 10:10:00 162.9 [lb_av] Co mmon [facility] temperature 2020-04-11 10:10:00 97.2 [degF] Com mon [facility] bmi 2020-04-11 10:10:00 25.51 kg/m2 Comm on [facility] oximetry 2020-04-11 10:10:00 97 % Commo n [facility] respiratory rate 2020-04-11 10:10:00 16 /min [facility] blood pressure systolic 2020-04-11 10:10:00 133 mm[Hg] [facility] blood pressure diastolic 2020-04-11 10:10:00 76 mm[Hg] [facility] Encounters Start Date/Time End Date/Time Encounter Type Admission Type Attending [facility] Care Department Encounter ID Source 2024-08-09 08:13:[address] [facility] [id number] [facility] 2024-07-01 11:23:[address] [facility] [id number] [facility] 2024-03-28 11:13:[address] [facility] [id number] [facility] 2023-09-29 11:19:00 Outpatient Meño Tanner [facility] [id number] [facility] 2023-09-11 16:46:00 Outpatient Meño Tanner [facility] [id number] [facility] 2023-03-18 13:13:00 Outpatient Meño Tanner [facility] [id number] [facility] 2021-07-03 12:56:24 Outpatient Reese, Cristian [facility] [id number] [facility] 2021-07-03 12:49:08 Outpatient Reese, Cristian [facility] [id number] [facility] 2021-07-03 12:27:54 Outpatient Reese, Cristian [facility] [id number] [facility] 2021-07-03 12:26:13 Outpatient Reese, Cristian [facility] [id number] [facility] 2021-07-03 12:25:48 Outpatient Reese, Cristian [facility] [id number] [facility] 2021-07-03 12:01:36 Outpatient Reese, Cristian [facility] [id number] [facility] 2021-07-03 11:23:05 Outpatient Reese, Cristian [facility] ST[facility] [id number] [facility] 2021-07-03 11:16:49 Outpatient Reese, Cristian [facility]LMLC ST[facility] [id number] [facility] 2021-07-03 11:12:15 Outpatient Reese, Cristian [facility] [id number] [facility] 2021-07-03 11:06:11 Outpatient Reese, Cristian [facility] [id number] [facility] 2021-07-03 10:58:21 Outpatient Cristian Reese [facility] [id number] [facility] 2024-08-09 00:00:00 2024-08-09 00:00:00 OFFICE VISIT ESTAB PT LEVEL 3 [facility]LMLC STL[facility]C [id number] [facility] 2024-08-01 00:00:00 2024-08-01 00:00:00 (WEB) STLMLC STL[facility] [id number] [facility] 2024-07-31 00:00:00 2024-07-31 00:00:00 (WEB) STLMLC STLMLC [id number] [facility] 2024-07-26 00:00:00 2024-07-26 00:00:00 (TEL) STLMLC STLMLC [id number] [facility] 2024-07-05 00:00:00 2024-07-05 00:00:00 OFFICE VISIT ESTAB PT LEVEL 4 STLMLC STLMLC [id number] [facility] 2024-07-05 00:00:00 2024-07-05 00:00:00 WELCOME TO MEDICARE PREV PHY EXAM STLMLC STLMLC [id number] [facility] 2024-07-05 00:00:00 2024-07-05 00:00:00 (TEL) STLMLC STLMLC [id number] [facility] 2024-05-26 00:00:00 2024-05-26 00:00:00 OFFICE VISIT ESTAB PT LEVEL 4 STLMLC STLMLC [id number] [facility] 2024-05-25 00:00:00 2024-05-25 00:00:00 (TEL) STLMLC STLMLC [id number] [facility] 2024-04-04 00:00:00 2024-04-04 00:00:00 OFFICE VISIT ESTAB PT LEVEL 4 STLMLC STLMLC [id number] [facility] 2024-01-21 00:00:00 2024-01-21 00:00:00 (TEL) STLMLC STLMLC [id number] [facility] 2024-01-18 00:00:00 2024-01-18 00:00:00 OFFICE VISIT ESTAB PT LEVEL 4 STLMLC STLMLC [id number] [facility] 2023-10-12 00:00:00 2023-10-12 00:00:00 OFFICE VISIT ESTAB PT LEVEL 4 STLMLC STLMLC [id number] [facility] 2023-09-11 00:00:00 2023-09-11 00:00:00 OFFICE VISIT ESTAB PT LEVEL 4 STLMLC STLMLC [id number] [facility] 2023-09-09 00:00:00 2023-09-09 00:00:00 (TEL) STLMLC STLMLC [id number] [facility] 2023-03-19 00:00:00 2023-03-19 00:00:00 OFFICE VISIT ESTAB PT LEVEL 4 STLMLC STLMLC [id number] [facility] 2020-09-12 00:00:00 2020-09-12 00:00:00 OFFICE VISIT EST PT LEVEL 3 STLMLC STLMLC [id number] [facility] 2020-07-12 00:00:00 2020-07-12 00:00:00 OFFICE VISIT ESTAB PT LEVEL 4 [facility]LMLC STLMLC [id number] [facility] 2020-04-11 00:00:00 2020-04-11 00:00:00 OFFICE VISIT ESTAB PT LEVEL 4 STLMLC STLMLC [id number] [facility] 2020-03-16 00:00:00 2020-03-16 00:00:00 (TEL) STLMLC STLMLC [id number] [facility] 2020-01-10 14:00:00 2020-01-10 14:00:[address] [facility] [id number] [facility] 2019-12-23 15:24:00 2019-12-23 15:24:[address] [facility] [id number] [facility] 2019-12-12 15:19:00 2019-12-12 15:19:[address] [facility] [id number] [facility] 2019-11-17 17:25:00 2019-11-17 17:25:[address] [facility] [id number] [facility] 2019-11-16 10:15:00 2019-11-16 10:15:[address] [facility] [id number] [facility] 2019-11-10 08:11:00 2019-11-10 08:11:[address] [facility] [id number] [facility] 2019-11-03 13:32:00 2019-11-03 13:32:[address] [facility] [id number] [facility] 2019-10-28 15:18:00 2019-10-28 15:18:[address] [facility] [id number] [facility] 2019-10-27 16:52:00 2019-10-27 16:52:[address] [facility] [facility] [id number] [facility] 2019-10-26 09:45:00 2019-10-26 09:45:[address] [facility] [facility] [address] [id number] [facility] 2019-09-13 14:30:00 2019-09-13 14:30:[address] [facility] [id number] [facility] 2019-08-11 15:15:00 2019-08-11 15:15:[address] [facility] [address] [facility] [address] [facility] [id number] [facility] 2019-07-28 08:19:00 2019-07-28 08:19:[address] [facility] [id number] [facility] 2019-07-14 15:23:00 2019-07-14 15:23:[address] [facility] [address] [id number] [facility] 2019-06-14 14:45:00 2019-06-14 14:45:[address] [facility] [id number] [facility] 2019-05-19 13:15:00 2019-05-19 13:15:[address] [facility] [id number] [facility] 2019-05-12 15:30:00 2019-05-12 15:30:[address] [facility] [id number] [facility] Results Test Description Test Time Test Comments Results Result Co mments Source
[2024-08-24] MEDS ORDERED: MECLIZINE HCL 12.5 MG TAB ONE (12:21)
--- NOTE | 2024-08-24 12:41 | RAD REPORT ---
EXAM: Chest Single View HISTORY: 64 years Female dizziness COMPARISON: 02/09/2022 FINDINGS: LUNGS/PLEURA: The lungs are clear. No pleural effusions or pneumothorax. No pulmonary edema. CARDIAC/MEDIASTINUM: The cardiac silhouette is within normal limits. UPPER ABDOMEN: No significant abnormality. BONES: No acute abnormality. LINES/TUBES/OTHER: N/A IMPRESSION: No evidence of acute cardiopulmonary disease. No significant change from prior.
[2024-08-24 12:45] LABS: Absolute Eosinophils 0.1 K/uL (0-0.5); Absolute Lymphocytes (CBC) 1.3 K/uL (0.7-4.9); Absolute Monocytes 0.3 K/uL (0.1-1.3); Absolute Neutrophil 4.2 K/uL (1.8-8.0); Basophils % 0.7 % (0-1.3); Eosinophils % 1.4 % (0-4.4); Hematocrit 37.5 % (36.0-45.0); Hemoglobin 13.1 g/dL (12.0-15.0); Lymphocytes % 21.6 % (15.3-44.8); MCH 32.5 pg (27.0-35.0); MCV 92.9 fL (80-100); MPV 11.2 fL (7.6-11.3); Monocytes % 5.6 % (3.3-12.3); Neutrophils % 70.7 % (41.7-73.7); Platelets 72 thou/uL (152-406); RBC Red Blood Cell Count 4.03 M/uL (3.86-4.86); Red Cell Distribution Width 12.7 % (12.1-15.2)
[2024-08-24 13:04] LABS: Anion Gap 6.4 mEq/L (5.0-15.0); BUN Blood Urea Nitrogen 14 mg/dL (7-18); Bicarbonate 30 mEq/L (21-32); Glomerular Filtration Rate 98 ml/min (=/>90); Glucose Level 154 mg/dL (74-106); Magnesium 2.2 mg/dL (1.6-2.4); Potassium 3.4 mEq/L (3.5-5.1); Sodium Level 139 mEq/L (136-145)
[2024-08-24 13:05] LABS: Troponin High Sensitivity < 3.0 pg/mL (<58.9)
--- NOTE | 2024-08-24 13:13 | RAD REPORT ---
EXAMINATION: Head Brain Wo Cont CLINICAL INDICATION: Female, 64 years old.DIZZINESS TECHNIQUE: Axial CT images from the skull base to the vertex without intravenous contrast. Coronal an d sagittal reformatted images were created from the data set. One or more of the following dose reduction techniques were used: Automated exposure control, adjustment of the mA and/or kV according to patient size, and/or iterative reconstruction. Unless otherwise specified, incidental findings do not require dedicated imaging follow-up. [id number]. COMPARISON: MRI head 06/27/2024 FINDINGS: INTRACRANIAL: No acute intracranial hemorrhage. No hydrocephalus. No mass effect or midline shift. Mi ld chronic small vessel ischemic changes.Mild cerebral atrophy. Bilateral basal ganglia mineralization. VASCULATURE: No visualized abnormalities in the arteries or dural venous sinuses. SCALP/SKULL: No calvarial fracture identified. No acute soft tissue abnormality. SINUSES: The visualized paranasal sinuses are mostly clear. No significant mastoid fluid. IMPRESSION: No acute intracranial abnormality.
[2024-08-24 13:37] LABS: Blood Morphology Comment NOT SEEN (NOT SEEN); Platelet Estimate DECR; White Blood Cell Scan OK (OK)
[2024-08-24] MEDS ORDERED: NA CHLORIDE 0.9% 1,000 ML ONE (13:56)
[2024-08-24 14:29] LABS: Specific Gravity 1.022 (1.005-1.030); Sqamous Epithelial None Seen /HPF (None Seen); Urine Bacteria None Seen /HPF (<20); Urine Bilirubin NEGATIVE (Negative); Urine Blood Negative (Negative); Urine Clarity Extremely Turbid (Clear); Urine Color Yellow (Yellow); Urine Culture Reflex Order NOT NEEDED; Urine Glucose NEGATIVE (Negative); Urine Ketones NEGATIVE (Negative); Urine Microscopic Reflex YN ORDER UMIC; Urine Mucus Slight /HPF (None Seen); Urine Nitrite NEGATIVE (Negative); Urine Protein TRACE (Negative); Urine RBC None Seen /HPF (None Seen); Urine Urobilinogen Normal (Normal); Urine WBC None Seen /HPF (<5); Urine pH 7.5 (5.0-7.0)
--- NOTE | 2024-08-24 14:37 | ER ---
Nurse's Notes [facility] Name: Salma Kumar Age: 64 yrs Sex: Female : 1960 Arrival Date: 08/24/2024 Time: 11:54 Bed 19 Private MD: Diagnosis: Dizziness;Patient unitentional overdosing of medication Presentation: 08/24 12:06 Chief complaint: Patient states: Dizziness, nausea onset 1 week ago that has been cm10 intermittent. Pts family states that today patient became diaphoretic. Pt reports headache and that the dizziness is worse when moving her head. Coronavirus screen: Client denies travel out of the [place] in the last 14 days. Ebola Screen: Patient denies travel to an Ebola-affected area in the 21 days before illness onset. Initial Sepsis Screen: Does the patient meet any 2 criteria? No. Patient's initial sepsis screen is negative. Does the patient have a suspected source of infection? No. Patient's initial sepsis screen is negative. Risk Assessment: Do you want to hurt yourself or someone else? Patient reports no desire to harm self or others. Onset of symptoms was August 24, 2024. 12:06 Method Of Arrival: Ambulatory cm10 12:06 Acuity: CHELLE 3 cm10 14:59 No acute neurological deficit is noted. The patients blood glucose was checked before kj2 arriving to the hospital and was found to be normal. Triage Assessment: 12:08 General: Appears uncomfortable, ill, Behavior is calm, cooperative. Neuro: No deficits cm10 noted. Level of Consciousness is awake, alert, obeys commands, Oriented to person, place, time, situation, Appropriate for age Reports dizziness, headache. Derm: Skin is clammy. 15:00 The onset of the patients symptoms was August 24, 2024 at 15:00. kj2 Historical: - Allergies: 12:04 No Known Allergies; cm10 - Home Meds: 12:04 donepezil 10 mg oral tablet [Active]; hydroxychloroquine 200 mg oral tablet [Active]; cm10 atorvastatin 20 mg oral tablet [Active]; escitalopram oxalate 20 mg oral tablet [Active]; - PMHx: 12:04 Anxiety; Depressive disorder; Rheumatoid arthritis; Hypercholesterolemia; cm10 - Immunization history:: Adult Immunizations up to date. - Infectious Disease History:: Denies. - Social history:: Smoking status: unknown. Screenin:20 [facility] ED Fall Risk Assessment (Adult) History of falling in the last 3 months, kj2 including since admission No falls in past 3 months (0 pts) Confusion or Disorientation No (0 pts) Intoxicated or Sedated No (0 pts) Impaired Gait No (0 pts) Mobility Assist Device Used No (0 pt) Altered Elimination No (0 pt) Score/Fall Risk Level 0 - 2 = Low Risk Maintained a safe environment, Hourly rounding (assess needs \T\ fall precautionary measures) done. Abuse screen: Denies threats or abuse. Denies injuries from another. Nutritional screening: No deficits noted. Tuberculosis screening: No symptoms or risk factors identified. Assessment: 12:15 VAN Scoring: Arm Drift:. [place] Swallow Protocol Exclusion Criteria: Unable to remain kj2 alert for testing: No NPO for medical/surgical reason by provider order No Head-of-bed restricted <30 degrees Tracheostomy tube present No No thin liquids due to preexisting dysphagia/baseline modified diet thickened liquids No Exclusion Criteria Result: Proceed Brief Cognitive Screen What is your name? Normal, Where are you right now? Normal, What year is it? Normal. Oral Mechanism Examination Facial Symmetry: Normal, Motion: Normal, Lip Closure: Normal, Oral Mechanism Result: Normal. 3 oz Water Swallow Challenge: Pt able to drink all water without stopping, coughing, choking or throat clearing: Yes Result: PASS MD Notified: Velasquez Griffin DO. Pain: Complains of pain in abdomen. Neuro: Level of Consciousness is awake, alert, obeys commands, Oriented to person, place, time, situation. Cardiovascular: Patient's skin is warm and dry. Respiratory: Airway is patent Respiratory effort is even, unlabored. 12:15 TNKase (Tenecteplase) Screening: Not Applicable. kj2 13:15 Reassessment: Patient appears in no apparent distress at this time. Patient and/or kj2 family updated on plan of care and expected duration. Pain level reassessed. Patient is alert, oriented x 3, equal unlabored respirations, skin warm/dry/pink. 14:14 Reassessment: Patient appears in no apparent distress at this time. Patient and/or kj2 family updated on plan of care and expected duration. Pain level reassessed. Patient is alert, oriented x 3, equal unlabored respirations, skin warm/dry/pink. 14:58 Reassessment: Patient appears in no apparent distress at this time. Patient and/or kj2 family updated on plan of care and expected duration. Pain level reassessed. Patient is alert, oriented x 3, equal unlabored respirations, skin warm/dry/pink. Vital Signs: 12:06 BP 133 / 92; Pulse 61; Resp 15; Temp 97.5; Pulse Ox 94% on R/A; Weight 66.68 kg; cm10 12:06 Pain 8/10; cm10 12:15 BP 138 / 86; Pulse 47; Resp 20; Temp 98.2; Pulse Ox 100% ; kj2 13:15 BP 136 / 84; Pulse 48; Resp 20; Pulse Ox 100% ; kj2 14:14 BP 147 / 81; Pulse 48; Resp 18; Pulse Ox 98% on R/A; kj2 14:58 BP 142 / 78; Pulse 47; Resp 20; Temp 97.9; Pulse Ox 98% on R/A; kj2 12:06 Pain Scale: Adult cm10 NIH Stroke Scale Scores: 12:15 NIHSS Score: 1 kj2 ED Course: 11:58 Patient arrived in ED. cj3 12:03 Velasquez Griffin DO is Attending Physician. ms3 12:08 Triage completed. cm10 12:08 Arm band placed on right wrist. Patient placed in an exam room, on a stretcher. cm10 12:17 Jumana Murillo, RN is Primary Nurse. kj2 12:28 XRAY Chest (1 view) In Process Unspecified. EDMS 12:47 Patient has correct armband on for positive identification. Provided Education on: call kj2 light. 12:49 CT Head Brain wo Cont In Process Unspecified. EDMS 14:15 Urinalysis w/ reflexes Sent. kj2 14:36 Evgeny Bonilla MD is Referral Physician. ms3 14:59 No provider procedures requiring assistance completed. IV discontinued, intact, kj2 bleeding controlled, No redness/swelling at site. Pressure dressing applied. Administered Medications: 12:24 Drug: Meclizine PO 50 mg PO once Route: PO; kj2 14:13 Follow up: Response: No adverse reaction kj2 14:13 Drug: NS 0.9% IV 1000 ml IV at 1000 ml once; to be given as a bolus over 60 minutes kj2 Route: IV; Rate: 1000 ml; Site: left antecubital; 15:01 Follow up: IV Status: Completed infusion; IV Intake: 1000ml kj2 Medication: 12:47 VIS not applicable for this client. kj2 Point of Care Testing: Blood Glucose: 15:00 Blood Glucose: 125 mg/dL; kj2 Ranges: Intake: 15:01 IV: 1000ml; Total: 1000ml. kj2 Outcome: 14:36 Discharge ordered by . ms3 15:00 Discharged to home ambulatory, kj2 15:00 Condition: stable 15:00 Discharge instructions given to patient, family, Instructed on discharge instructions, follow up and referral plans. Demonstrated understanding of instructions, follow-up care, 15:08 Patient left the ED. kj2 NIH Stroke Scale - NIH Stroke Score Date: 08/24/2024 Time: 12:15 Total Score = 1 10. Dysarthria (speech clarity - read or repeat words) - 0(Normal) 11. Extinction and Inattention (visual/tactile/auditory/spatial/personal) - 0(No abnormality) 1a. Level of Consciousness (LOC) - 0(Alert) 1b. Level of Consciousness (LOC) (Month \T\ Age) - 0(Both) 1c. LOC Commands (Open \T\ Closes Eyes/Custom Dressmaker) - 0(Both) 2. Best Gaze (Lateral Gaze Paresis) - 0(Normal) 3. Visual Field Loss - 0(No visual loss) 4. Facial Palsy - 0(Normal) 5a. Left Arm: Motor (10-second hold) - 0(No drift) 5b. Right Arm: Motor (10-second hold) - 0(No drift) 6a. Left Leg: Motor (5-second hold - always test supine) - 1(Drift) 6b. Right Leg: Motor (5-second hold - always test supine) - 0(No drift) 7. Limb Ataxia (finger/nose \T\ heel/turner - test with eyes open) - 0(Absent) 8. Sensory Loss (pinprick arms/legs/face) - 0(Normal) 9. Best Language: Aphasia (description/naming/reading) - 0(No aphasia) Initials: kj2 Signatures: Dispatcher [employer] EDMS Velasquez Griffin DO DO ms3 Dania Estes RN RN cm10 Jumana Murillo RN RN kj2 Eva Driscoll cj3 Corrections: (The following items were deleted from the chart) 12:04 Allergies: No Known Allergies; cm10 cm10 12:04 Allergies: Donepezil; cm10 cm10
--- NOTE | 2024-08-24 14:37 | EDPHYS ---
Physician Documentation [facility] Name: Salma Kumar Age: 64 yrs Sex: Female : 1960 Arrival Date: 08/24/2024 Time: 11:54 Bed 19 Private MD: ED Physician Velasquez Griffin HPI: 08/24 14:00 This 64 yrs old Female presents to ER via Ambulatory with complaints of ms3 Weakness, Nausea, Dizziness, Sweating. 14:00 64-year-old female with past medical history anxiety, depression, rheumatoid arthritis, ms3 hypercholesterolemia, Alzheimer's presents to the emergency department for dizziness that has occurred over the last week intermittently. Patient states dizziness is worse when she wakes up in the morning and then becomes better throughout the day. Patient does not have pain at this time. Patient endorses nausea. Patient states the dizziness is worse with head movement or walking.. Historical: - Allergies: 12:04 No Known Allergies; cm10 - Home Meds: 12:04 donepezil 10 mg oral tablet [Active]; hydroxychloroquine 200 mg oral tablet [Active]; cm10 atorvastatin 20 mg oral tablet [Active]; escitalopram oxalate 20 mg oral tablet [Active]; - PMHx: 12:04 Anxiety; Depressive disorder; Rheumatoid arthritis; Hypercholesterolemia; cm10 - Immunization history:: Adult Immunizations up to date. - Infectious Disease History:: Denies. - Social history:: Smoking status: unknown. ROS: 14:00 Constitutional: Negative for fever, and chills. Cardiovascular: Negative for chest ms3 pain, and palpitations. Respiratory: Negative for shortness of breath, cough, wheezing, and pleuritic chest pain, Abdomen/GI: Negative for abdominal pain, nausea, vomiting, diarrhea, and constipation, 14:00 Neuro: Positive for dizziness, gait disturbance, Exam: 14:00 Constitutional: This is a well developed, well nourished patient who is awake, alert, ms3 and in no acute distress. Cardiovascular: Regular rate and rhythm with a normal S1 and S2. No gallops, murmurs, or rubs. Normal PMI, no JVD. No pulse deficits. Respiratory: Lungs have equal breath sounds bilaterally, clear to auscultation and percussion. No rales, rhonchi or wheezes noted. No increased work of breathing, no retractions or nasal flaring. Abdomen/GI: Soft, non-tender, with normal bowel sounds. No distension or tympany. No guarding or rebound. No evidence of tenderness throughout. Skin: Warm, dry with normal turgor. Normal color with no rashes, no lesions, and no evidence of cellulitis. MS/ Extremity: Pulses equal, no cyanosis. Neurovascular intact. Full, normal range of motion. Neuro: Awake and alert, GCS 15, oriented to person, place, time, and situation. Cranial nerves II-XII grossly intact. Motor strength 5/5 in all extremities. Sensory grossly intact. Cerebellar exam normal. Normal gait. 14:20 ECG was reviewed by the Attending Physician. ms3 Vital Signs: 12:06 BP 133 / 92; Pulse 61; Resp 15; Temp 97.5; Pulse Ox 94% on R/A; Weight 66.68 kg; cm10 12:06 Pain 8/10; cm10 12:15 BP 138 / 86; Pulse 47; Resp 20; Temp 98.2; Pulse Ox 100% ; kj2 13:15 BP 136 / 84; Pulse 48; Resp 20; Pulse Ox 100% ; kj2 14:14 BP 147 / 81; Pulse 48; Resp 18; Pulse Ox 98% on R/A; kj2 14:58 BP 142 / 78; Pulse 47; Resp 20; Temp 97.9; Pulse Ox 98% on R/A; kj2 12:06 Pain Scale: Adult cm10 NIH Stroke Scale Scores: 12:15 NIHSS Score: 1 kj2 MDM: 12:08 Medical Screening Exam initiated ms3 13:59 Management of patient was discussed with the following: Paper Novelty Maker: Discussed case with ms3 Dr. Bonilla. Patient had stated she was taking 2-10 mg donepezil tablets twice daily versus 1-10 mg donepezil tablet twice daily. Dr. Bonilla would like donepezil stopped.. 14:22 ED course: ER visit from February 09, 2022 reviewed showing platelets of 73 and ms3 patient's heart rate at 50.. 14:42 Data reviewed: vital signs, nurses notes, lab test result(s), EKG, radiologic studies, ms3 and as a result, I will discharge patient. I considered the following discharge prescriptions or medication management in the emergency department Medications were administered in the Emergency Department. See MAR. Independent interpretation of the following test(s) in the Emergency Department EKG: See my EKG interpretation above. Counseling: I had a detailed discussion with the patient and/or guardian regarding the historical points, exam findings, and any diagnostic results supporting the discharge/admit diagnosis, lab results, radiology results, the need for outpatient follow up, to return to the emergency department if symptoms worsen or persist or if there are any questions or concerns that arise at home. Special discussion: I discussed with the patient/guardian in detail that at this point there is no indication for admission to the hospital. It is understood, however, that if the symptoms persist or worsen the patient needs to return immediately for re-evaluation. ED course: Discussed conversation with Dr. Bonilla with the patient and her daughter. Patient to follow-up Dr. Bonilla this week. All questions were answered. Return precautions discussed include worsening symptoms, or any other concerns. Patient to discontinue her donepezil. On reevaluation patient states her symptoms have improved, patient is alert and oriented x 4, no apparent distress, nontoxic-appearing, speaking full sentences.. 08/24 12:08 Order name: Basic Metabolic Panel; Complete Time: 13:33 ms3 08/24 12:08 Order name: CBC with Diff; Complete Time: 13:40 ms3 08/24 12:08 Order name: Magnesium; Complete Time: 13:33 ms3 08/24 12:08 Order name: Troponin HS; Complete Time: 13:33 ms3 08/24 13:07 Order name: Glucose, Ancillary Testing; Complete Time: 13:33 EDMS 08/24 13:38 Order name: CBC Smear Scan; Complete Time: 13:40 EDMS 08/24 13:43 Order name: Urinalysis w/ reflexes; Complete Time: 14:35 ms3 08/24 12:08 Order name: XRAY Chest (1 view); Complete Time: 12:43 ms3 08/24 12:08 Order name: CT Head Brain wo Cont; Complete Time: 13:33 ms3 08/24 12:08 Order name: EKG; Complete Time: 12:09 ms3 08/24 12:08 Order name: Cardiac monitoring; Complete Time: 14:13 ms3 08/24 12:08 Order name: EKG - Nurse/Tech; Complete Time: 14:13 ms3 08/24 12:08 Order name: IV Saline Lock; Complete Time: 12:40 ms3 08/24 12:08 Order name: Labs collected and sent; Complete Time: 12:40 ms3 08/24 12:08 Order name: O2 Per Protocol; Complete Time: 12:40 ms3 08/24 12:08 Order name: O2 Sat Monitoring; Complete Time: 12:40 ms3 EC:20 Rate is 48 beats/min. Rhythm is regular. QRS [place] is Normal. WI interval is normal. QRS ms3 interval is normal. Clinical impression: Sinus bradycardia. Interpreted by me. Reviewed by me. Administered Medications: 12:24 Drug: Meclizine PO 50 mg PO once Route: PO; kj2 14:13 Follow up: Response: No adverse reaction kj2 14:13 Drug: NS 0.9% IV 1000 ml IV at 1000 ml once; to be given as a bolus over 60 minutes kj2 Route: IV; Rate: 1000 ml; Site: left antecubital; 15:01 Follow up: IV Status: Completed infusion; IV Intake: 1000ml kj2 Point of Care Testing: Blood Glucose: 15:00 Blood Glucose: 125 mg/dL; kj2 Ranges: Critical Glucose Levels:Adult <50 mg/dl or >400 mg/dl <40 mg/dl or >180 mg/dl Disposition Summary: 08/24/24 14:36 Discharge Ordered Notes: Location: Home ms3 Condition: Stable ms3 Diagnosis - Dizziness ms3 - Patient unitentional overdosing of medication ms3 Followup: ms3 - With: Evgeny Bonilla MD - When: 2 - 3 days - Reason: Recheck today's complaints Discharge Instructions: - Discharge Summary Sheet ms3 - Dizziness, [id number] ms3 Forms: - Medication Reconciliation Form ms3 - Antibiotic Education ms3 - Prescription Opioid Use ms3 - Patient Portal Instructions ms3 - Leadership Thank You Letter ms3 NIH Stroke Scale - NIH Stroke Score Date: 08/24/2024 Time: 12:15 Total Score = 1 10. Dysarthria (speech clarity - read or repeat words) - 0(Normal) 11. Extinction and Inattention (visual/tactile/auditory/spatial/personal) - 0(No abnormality) 1a. Level of Consciousness (LOC) - 0(Alert) 1b. Level of Consciousness (LOC) (Month \T\ Age) - 0(Both) 1c. LOC Commands (Open \T\ Closes Eyes/Commercial Loan Processor) - 0(Both) 2. Best Gaze (Lateral Gaze Paresis) - 0(Normal) 3. Visual Field Loss - 0(No visual loss) 4. Facial Palsy - 0(Normal) 5a. Left Arm: Motor (10-second hold) - 0(No drift) 5b. Right Arm: Motor (10-second hold) - 0(No drift) 6a. Left Leg: Motor (5-second hold - always test supine) - 1(Drift) 6b. Right Leg: Motor (5-second hold - always test supine) - 0(No drift) 7. Limb Ataxia (finger/nose \T\ heel/turner - test with eyes open) - 0(Absent) 8. Sensory Loss (pinprick arms/legs/face) - 0(Normal) 9. Best Language: Aphasia (description/naming/reading) - 0(No aphasia) Initials: kj2 Signatures: Dispatcher [employer] EDMS Velasquez Griffin DO DO ms3 Dania Estes, RN RN cm10 Jumana Murillo, CHALO RN kj2 Corrections: (The following items were deleted from the chart) 12:06 12:04 Allergies: No Known Allergies; cm10 cm10 12:06 12:04 Allergies: Donepezil; cm10 cm10 12:09 12:09 Chest Single View+RAD.RAD.BRZ ordered. EDMS EDMS 12: 12:09 Head Brain Wo Cont+CT.RAD.BRZ ordered. EDMS EDMS
[2024-08-24 21:38] VITALS: O2SAT 98
[2024-08-24 21:39] VITALS: BP 142/78; TEMP 97.9
== END 2024-08-24 15:08 | disposition home or self-care (01) ==
LOC: ER 11:54
DX: R42 Dizziness and giddiness (principal); Z91.138 Patient's unintentional underdosing of medication regimen for other reason; R26.9 Unspecified abnormalities of gait and mobility
CPT/HCPCS: 93005; 85025; 81001; 80048; 36415; 83735; 82947; 84484; 70450; 71045; J8597; J7030